=== PATIENT | female | born 1930 ===

== ENCOUNTER 2018-02-08 11:23 | Outpatient (CLI) | payer MEDICARE ==
--- NOTE | 2018-02-08 15:25 | PET ---
PET CT BRAIN: HISTORY: An 88-year-old female with dementia. TECHNIQUE: PET CT of the brain was performed following intravenous administration of 8.6 mCi of [id number] lucose. FINDINGS: Correlation is made with the CT scan of the brain dated 11/05/2017. Symmetric uptake is seen in the cerebellar hemispheres bilaterally without hypermetabolic changes in the frontal parietooccipital lobes. Relative decreased tracer localization in the temporal lobes is likely physiologic. IMPRESSION: Unremarkable exam. POS: RIC
== END 2018-02-08 11:24 | disposition home or self-care (01) ==
LOC: PET 11:23
PROVIDERS: ATTEND Nurse Practitioner Acute Care
DX: F03.90 Unspecified dementia, unspecified severity, without behavioral disturbance, psychotic disturbance, mood disturbance, and anxiety (principal)
CPT/HCPCS: 78608; A9552